=== PATIENT | female | born 1995 | race Hispanic/Latino ===

== ENCOUNTER 2016-12-12 08:32 | Emergency (ER) | payer OTHER ==
[~2016-12-12] VITALS: Ht 162.6 cm; Wt 55.0 kg
[2016-12-12] MEDS ORDERED: NS 1,000 ML IV ONE (10:00)
[2016-12-12 10:24] LABS: BASO % 0.6 % (0.0-1.0); LARGE UNSTAINED CELL # 0.1 K/mm3 (0.0-0.4); LARGE UNSTAINED CELL % 1.5 % (0.0-4.0); LYMPH # 1.9 K/mm3 (1.5-6.5); MEAN CORPUSCULAR HEMOGLOBIN 31.4 pg (27.0-33.0); MEAN CORPUSCULAR HGB CONC 34.2 g/dl (32.0-36.5); MEAN CORPUSCULAR VOLUME 91.8 fl (80.0-96.0); MONO # 0.4 K/mm3 (0.0-0.8); MONO % 7.3 % (0.0-5.0); NEUTROPHILS # 3.1 K/mm3 (1.8-7.7); NEUTROPHILS % 56.6 % (36.0-66.0); PLATELET COUNT, AUTOMATED 242 k/mm3 (150-450); RED CELL DISTRIBUTION WIDTH 13.6 % (11.5-14.5); WHITE BLOOD COUNT 5.4 K/mm3 (4.0-10.0)
[2016-12-12 10:31] LABS: ANION GAP 8 MEQ/L (8-16); BLOOD UREA NITROGEN 8 MG/DL (7-18); CALCIUM LEVEL 9.3 MG/DL (8.5-10.1); CARBON DIOXIDE LEVEL 27 MEQ/L (21-32); CHLORIDE LEVEL 106 MEQ/L (98-107); CREATININE FOR GFR 0.84 MG/DL (0.55-1.02); GLOMERULAR FILTRATION RATE > 60.0 (>60); GLUCOSE, FASTING 90 MG/DL (70-105); POTASSIUM SERUM 3.5 MEQ/L (3.5-5.1); SODIUM LEVEL 141 MEQ/L (136-145)
[2016-12-12] MEDS ORDERED: DIFL150T PO (11:12)
[2016-12-12 11:27] VITALS: BP 109/67
== END 2016-12-12 11:29 | disposition home or self-care (01) ==
LOC: M ED 08:32
DX: E86.0 Dehydration (principal); B37.3 Candidiasis of vulva and vagina; R51 Headache

== ENCOUNTER → 2017-12-14 | Outpatient (CLI) | payer OTHER | LOC: M RAD 11:33 | DX: O92.6 Galactorrhea (principal) | CPT/HCPCS: 76642 ==

== ENCOUNTER 2018-08-12 12:40 | Emergency (ER) | payer OTHER ==
[~2018-08-12] VITALS: Ht 162.6 cm; Wt 66.2 kg
[~2018-08-12 12:40] MED LIST: DIFL150T PO
[2018-08-12] MEDS ORDERED: NS 1,000 ML IV ONE (13:30)
[2018-08-12 14:39] LABS: BASO % 0.5 % (0.0-1.0); EOS # 0.1 10^3/uL (0.0-0.50); EOS % 0.9 % (0.0-3.0); HEMOGLOBIN 14.7 g/dl (12.0-15.5); LYMPH # 2.1 10^3/uL (1.5-6.5); LYMPH % 37.7 % (24.0-44.0); MEAN CORPUSCULAR HEMOGLOBIN 31.7 pg (27.0-33.0); MEAN CORPUSCULAR HGB CONC 34.2 g/dl (32.0-36.5); MEAN CORPUSCULAR VOLUME 92.9 fl (80.0-96.0); MONO # 0.6 10^3/uL (0.0-0.8); MONO % 10.5 % (0.0-5.0); NEUTROPHILS # 2.8 10^3/uL (1.8-7.7); NEUTROPHILS % 50.2 % (36.0-66.0); PLATELET COUNT, AUTOMATED 248 10^3/uL (150-450); RED BLOOD COUNT 4.63 10^6/uL (4.00-5.40); WHITE BLOOD COUNT 5.6 10^3/uL (4.0-10.0)
[2018-08-12 14:55] LABS: ALBUMIN 3.6 GM/DL (3.2-5.2); ALT/SGPT 27 U/L (12-78); AMYLASE 65 U/L (25-115); BILIRUBIN,DIRECT 0.1 MG/DL (0.0-0.2); BILIRUBIN,TOTAL 0.4 MG/DL (0.2-1.0); BLOOD UREA NITROGEN 12 MG/DL (7-18); CALCIUM LEVEL 8.6 MG/DL (8.5-10.1); CARBON DIOXIDE LEVEL 28 MEQ/L (21-32); CHLORIDE LEVEL 109 MEQ/L (98-107); CREATININE FOR GFR 0.78 MG/DL (0.55-1.30); GLOMERULAR FILTRATION RATE > 60.0 (>60); GLUCOSE, FASTING 76 MG/DL (70-100); LIPASE 88 U/L (73-393); POTASSIUM SERUM 4.1 MEQ/L (3.5-5.1); SODIUM LEVEL 140 MEQ/L (136-145); TOTAL PROTEIN 8.1 GM/DL (6.4-8.2)
[2018-08-12] MEDS ORDERED: ISOVUE-370 76% 100ML VIAL (Q9967) As Ordered ONE (14:59)
[2018-08-12] MEDS ORDERED: KETOROLAC 30 MG/ML VIAL (J1885) IV ONE (15:00)
--- NOTE | 2018-08-12 18:11 | REPVR ---
EXAM: US Pelvis Complete, Transabdominal EXAM DATE/TIME: 08/12/2018 4:43 PM CLINICAL HISTORY: 22 years old, female; Pelvic pain; Additional info: Pelvic pain; Left ovarian cyst on CT; Requested by obgyn TECHNIQUE: Imaging protocol: Real-time transabdominal pelvic ultrasound with image documentation. Complete exam. COMPARISON: CT ABD/PEL W/IV CONTRAST ONLY 08/12/2018 2:52 PM FINDINGS: Uterus/cervix: The uterus measures 7.7 CM in length by 3.9 CM in thickness by 4.5 CM in transverse dimension. The endometrium measures 1 cm in thickness and probably secretory endometrium. Right adnexa: The right ovary measures 2.7 CM in length x 1.9 CM in thickness. There are small follicular cysts of the right ovary. There is vascular flow the right ovary with no evidence of torsion. Left adnexa: The left ovary measures approximately 4.2 CM. Within the central portion of the left ovary is a round cystic structure measuring 4 CM. There are diffuse low level echoes. I suspect this is a hemorrhagic cyst. An endometrioma could give an identical appearance. Cystic mass such as cystadenoma or cystadenocarcinoma could have this appearance as well. It would be important to have a followup studies to see if this resolves. There is vascular flow of the tissues surrounding this large left cyst and there is no evidence of torsion. There is a small amount of fluid in the pelvis probably secondary to leaking from this cyst. Free fluid: There is a small amount of free fluid within the pelvis. Bladder: Normal appearing urinary bladder. IMPRESSION: 4 CM round cystic structure left ovary with low level echoes. Considerations include hemorrhagic cyst, endometrioma, cystadenoma or cystadenocarcinoma. Recommend sequential followup studies to see if this resolves. Small amount of free fluid in the left adnexa Electronically signed by: Maximiliano Curry On 08/12/2018 18:10:30 PM
[2018-08-12 18:22] VITALS: BP 120/80
--- NOTE | 2018-08-13 07:46 | REP ---
CT ABDOMEN AND PELVIS WITH IV CONTRAST: TECHNIQUE: Axial contrast enhanced images from the lung bases to the pubic symphysis using 100 mL Isovue 370 intravenous contrast material with multiplanar reformations. The visualized lung bases are clear. Liver, spleen, adrenals, pancreas, and kidneys are normal in appearance. There is no hydronephrosis. There is no abdominal aortic aneurysm. There is no adenopathy. There is no free air or free fluid. No bowel wall thickening is seen. There is no evidence of appendicitis. There is a cyst of the left ovary which measures 4.5 cm in diameter. No other pelvic mass or free fluid is seen. Uterus is deviated to the left of midline. Urinary bladder is grossly unremarkable. IMPRESSION: Left ovarian cyst measures approximately 4.5 cm in diameter. No other acute findings. Electronically Signed by Farrukh Berry MD 08/13/2018 11:28 A
--- NOTE | 2018-08-14 15:05 | ED PDOC ---
Post-Departure Follow-Up dr orellana, ft boris ob and tho escalante fp faxed formal report of pelvc us for fu Sami Aguilar MD August 14, 2018 15:05
== END 2018-08-12 18:16 | disposition home or self-care (01) ==
LOC: M ED 12:40
DX: N83.292 Other ovarian cyst, left side (principal)
CPT/HCPCS: 74177; 76830; 76856; 80048; 80076; 81001; 82150; 83690; 84702; 85025; 93976; 96374; 99284; J1885; Q9967

== ENCOUNTER 2018-09-09 12:46 | Emergency (ER) | payer OTHER ==
[~2018-09-09] VITALS: Ht 162.6 cm; Wt 65.4 kg
[2018-09-09] MEDS ORDERED: FLAG500T PO (14:36)
[2018-09-09 14:43] VITALS: BP 127/82
[2018-09-09 15:41] LABS: CHLAMYDIA DNA AMPLIFICATION NEGATIVE (NEGATIVE); GC DNA AMPLIFICATION NEGATIVE (NEGATIVE)
== END 2018-09-09 14:49 | disposition home or self-care (01) ==
LOC: M ED 12:46
DX: J02.9 Acute pharyngitis, unspecified (principal); J06.9 Acute upper respiratory infection, unspecified; N76.0 Acute vaginitis

== ENCOUNTER 2018-09-18 20:04 | Emergency (ER) | payer OTHER ==
[~2018-09-18] VITALS: Ht 162.6 cm; Wt 65.9 kg
[~2018-09-18 20:04] MED LIST changes: +FLAG500T PO
[2018-09-18 20:05] VITALS: BP 139/96
== END 2018-09-18 20:50 | disposition left against medical advice (07) ==
LOC: M ED 20:04
DX: Z53.29 Procedure and treatment not carried out because of patient's decision for other reasons (principal)

== ENCOUNTER 2018-10-28 07:06 | Emergency (ER) | payer OTHER ==
[~2018-10-28] VITALS: Ht 162.6 cm; Wt 64.5 kg
[2018-10-28] MEDS ORDERED: ACETAMINOPHEN TAB 650MG DOSE (2X325MG) PO ONE (09:15)
--- NOTE | 2018-10-28 10:07 | REP ---
CT BRAIN WITHOUT CONTRAST: CT brain performed without IV contrast. The ventricles are normal in size and position with no midline shift or mass effect. Berry-white differentiation is well maintained. There is no acute intracranial hemorrhage or extra-axial fluid collection. No skull fracture is seen. Visualized paranasal sinuses are clear. IMPRESSION: No evidence of acute bleed or fracture. Electronically Signed by Farrukh Berry MD 10/29/2018 09:18 P
[2018-10-28 10:11] VITALS: BP 123/79
== END 2018-10-28 10:10 | disposition home or self-care (01) ==
LOC: M ED 09:15
DX: S06.0X0A Concussion without loss of consciousness, initial encounter (principal); S00.03XA Contusion of scalp, initial encounter; Y04.8XXA Assault by other bodily force, initial encounter; Y92.89 Other specified places as the place of occurrence of the external cause; Y93.89 Activity, other specified; Y99.9 Unspecified external cause status; L40.9 Psoriasis, unspecified

== ENCOUNTER → 2019-02-09 | Outpatient (CLI) | payer OTHER ==
[~2019-02-09] MED LIST changes: +PROHANCE 279.3MG/ML 5ML VIAL (A9576) As Ordered ONE
--- NOTE | 2019-02-09 14:57 | REP ---
MRI brain/pituitary: 02/09/2019. Indication: Galactorrhea. Comparison: None. Technique: Multiplanar short and long TR sequences of the brain and pituitary were performed following IV administration of 6 ml ProHance. O Findings: There are no areas of restricted diffusion. There is no intracranial mass effect or hydrocephalous. No significant intracranial hemorrhage is present. There are no significant signal abnormalities within the brainstem or brain parenchyma. New. The large intracranial flow voids are unremarkable. The sella and suprasellar region are unremarkable without mass or abnormal gadolinium enhancement. No significant cavernous sinus abnormalities are detected. Impression: Unremarkable brain/pituitary gland. Electronically Signed by Jeremy Dodge DO 02/09/2019 02:49 P
== END ==
LOC: M RAD 09:25
PROVIDERS: ATTEND Internal Medicine Endocrinology, Diabetes & Metabolism
DX: N64.3 Galactorrhea not associated with childbirth (principal)

== ENCOUNTER 2019-02-22 20:18 | Emergency (ER) | payer OTHER ==
[~2019-02-22] VITALS: Ht 162.6 cm; Wt 63.6 kg
[~2019-02-22 20:18] MED LIST changes: -PROHANCE 279.3MG/ML 5ML VIAL (A9576) As Ordered ONE
[2019-02-22] MEDS ORDERED: FLUO5OI (20:27)
[2019-02-22 21:15] LABS: BASO % 0.4 % (0.0-1.0); EOS # 0.1 10^3/uL (0.0-0.5); EOS % 0.6 % (0.0-3.0); HEMATOCRIT 39.9 % (36.0-47.0); HEMOGLOBIN 13.4 g/dl (12.0-15.5); LYMPH # 2.9 10^3/uL (1.5-5.0); LYMPH % 31.9 % (24.0-44.0); MEAN CORPUSCULAR HEMOGLOBIN 31.2 pg (27.0-33.0); MEAN CORPUSCULAR HGB CONC 33.6 g/dl (32.0-36.5); MONO % 11.4 % (0.0-5.0); NEUTROPHILS % 55.5 % (36.0-66.0); PLATELET COUNT, AUTOMATED 242 10^3/uL (150-450); RED BLOOD COUNT 4.29 10^6/uL (4.00-5.40)
[2019-02-22 21:49] LABS: ALBUMIN 3.5 GM/DL (3.2-5.2); ALT/SGPT 26 U/L (12-78); BILIRUBIN,DIRECT < 0.1 MG/DL (0.0-0.2); BILIRUBIN,TOTAL 0.2 MG/DL (0.2-1.0); BLOOD UREA NITROGEN 14 MG/DL (7-18); CALCIUM LEVEL 8.6 MG/DL (8.5-10.1); CARBON DIOXIDE LEVEL 27 MEQ/L (21-32); CHLORIDE LEVEL 105 MEQ/L (98-107); CK-MB VALUE MASS < 1.0 NG/ML (<3.6); CPK CREATINE PHOSPHOKINASE 87 U/L (26-192); CREATININE FOR GFR 0.85 MG/DL (0.55-1.30); FREE T4 0.95 NG/DL (0.76-1.46); GLOMERULAR FILTRATION RATE > 60.0 (>60); GLUCOSE, FASTING 73 MG/DL (70-100); LIPASE 106 U/L (73-393); MB/CK RELATIVE INDEX 1.15 (< OR =4); NT-PRO BNP 7 PG/ML (<125); POTASSIUM SERUM 3.6 MEQ/L (3.5-5.1); SODIUM LEVEL 139 MEQ/L (136-145); TOTAL PROTEIN 7.7 GM/DL (6.4-8.2); TROPONIN I < 0.02 NG/ML (< 0.10)
[2019-02-22] MEDS ORDERED: GI COCKTAIL 50ML BTL(HYOSCYAMINE/MAALOX/LIDOCAINE VISCOUS)(1:3:1) PO ONE (22:00)
[2019-02-22] MEDS ORDERED: PRIL20TA2 PO (23:33)
[2019-02-22 23:42] VITALS: BP 124/78
--- NOTE | 2019-02-23 00:22 | REP ---
Clinical: Acute chest pain . Comparison: None . Technique: PA and lateral. Findings: The mediastinum and cardiac silhouette are normal. The lung morrell are clear and without acute consolidation, effusion, or pneumothorax. The skeletal structures are intact and normal. Impression: 1. No acute cardiopulmonary process. Electronically Signed by Dariel Ortiz MD 02/23/2019 12:14 A
--- NOTE | 2019-02-23 18:58 | ECGEPIP ---
[facility] - ED Test Date: 2019-02-22 Pat Name: STUART CHIANG Department: Room: - Gender: Female Prevention Specialist: FALGUNI : 1995 Requested By: ELIGIO Lancaster PA-C Order Number: [id number] Reading MD: Mary Crews Measurements Intervals [place] Rate: 75 P: 47 NE: 171 QRS: 21 QRSD: 93 T: 36 QT: 381 QTc: 426 Interpretive Statements SINUS RHYTHM WITH SINUS ARRHYTHMIA NO PRIOR Electronically Signed on 02-23-2019 18:57:54 EST by Mary Crews
== END 2019-02-22 23:43 | disposition home or self-care (01) ==
LOC: M ED 20:18
DX: R10.13 Epigastric pain (principal); L40.9 Psoriasis, unspecified; Z87.440 Personal history of urinary (tract) infections; Z79.899 Other long term (current) drug therapy